=== PATIENT | male | born 1990 | race Caucasian/White ===

== ENCOUNTER → 2019-02-04 | Outpatient (CLI) | payer BC ==
--- NOTE | 2019-02-04 13:24 | Diagnostic Imaging Report ---
INDICATION: Low back pain. Five views were obtained. FINDINGS: Alignment, vertebral body heights, and disc spaces are within normal limits. There is no spondylolysis or spondylolisthesis. There is no acute fracture or traumatic subluxation. IMPRESSION: No acute radiographic abnormality. Dictated by: Dictated on workstation # [id number]
== END ==
LOC: RAD FS 12:56
PROVIDERS: ATTEND Family Medicine
DX: M54.41 Lumbago with sciatica, right side (principal)
CPT/HCPCS: 72110

== ENCOUNTER → 2022-02-20 | Outpatient (CLI) | payer SELFPAY | LOC: LAB 12:47 | PROVIDERS: ATTEND Obstetrics & Gynecology | DX: N46.9 Male infertility, unspecified (principal) | CPT/HCPCS: 89320 ==